=== PATIENT | male | born 1995 | race Two or more races ===

== ENCOUNTER 2025-05-08 06:04 | Day surgery (SDC) | payer MEDICAID, SELFPAY ==
[2025-05-08] VITALS (12 sets, daily range): BP systolic 94–147; BP diastolic 45–94; PULSE 51–81; RESP 15–20; TEMP 36.6–36.9; O2SAT 96–100; BMI 30.9
--- NOTE | 2025-05-08 06:27 | XR_ITS ---
Examination: Knee, left, 3 views Technique: Knee AP, lateral, oblique 3 views Date and time of exam: May 08, 2025, 0632 hours INDICATIONS: Patient fell 2 days ago with injury to the knee, knee pain FINDINGS: Acute patellar fracture, marked separation up to 4 cm of the fracture fragments Femur tibia fibula intact IMPRESSION: Acute mildly fracture of the patella
--- NOTE | 2025-05-08 06:34 | EDNOTE_ITS ---
Lower Extremity Injury RME/HPI General Chief Complaint: Extremity Injury, Lower Stated Complaint: LEFT KNEE PAIN AND NUMBNESS X2 DAYS, PENDING SX Time Seen by Provider: 05/08/25 06:13 Arrival date/time: 05/08/25 06:04 29-year-old male presents to the emergency department since fracturing his left knee on the patient reports pain and swelling to the left knee patient reports he has seen Dr. Pedraza orthopedist 2 to 3 days ago and is awaiting intervention patient reports that he has pain and cannot sleep and asking for pain relief and to see if they can speak with Dr Pedraza Limitations: no limitations Related Data Allergies Allergy/AdvReac Type Severity Reaction Status Date / Time Penicillins Allergy ITCHING Verified 05/08/25 06:07 Review of Systems Review of Systems Systems Reviewed: All systems reviewed, normal except as documented Constitutional Constitutional: Reports system reviewed and no additional complaints, except as documented, Denies fever(s) and Denies headache(s) Eyes Eyes: Reports system reviewed and no additional complaints, except as documented and Denies blurry vision ENT Ears, Nose, Mouth, and Throat: Reports system reviewed and no additional compl aints, except as documented, Denies headache(s), Denies nasal congestion and Denies nasal discharge Cardiovascular Cardiovascular: Reports system reviewed and no additional complaints, except as documented, Denies chest pain and Denies dyspnea Respiratory Respiratory: Reports system reviewed and no additional complaints, except as documented, Denies chest congestion, Denies cough and Denies dyspnea Gastrointestinal Gastrointestinal: Reports system reviewed and no additional complaints, except as documented and Denies abdominal pain Musculoskeletal Musculoskeletal: Reports system reviewed and no additional complaints, except as documented, Reports abnormal gait, Reports arthralgias, Denies deformity, Reports joint swelling, Denies numbness, Reports stiffness and Denies tingling Integumentary/Breasts Skin/Breast: Reports system reviewed and no additional complaints, except as documented and Denies rash Neurologic Neurologic: Reports system reviewed and no additional complaints, except as documented, Reports as per HPI, Reports abnormal gait, Denies headache(s), Denies numbness and Denies tingling Past Medical History Social History SMOKING STATUS: Never smoker ED Exam General Limitations: Present no limitations General appearance: Present alert and in no apparent distress Head Head exam: Present atraumatic Eye Eye exam: Present normal appearance, PERRL and EOMI ENT ENT exam: Present normal exam, normal oropharynx and mucous membranes moist Neck Neck exam: Present normal inspection, full ROM and trachea midline Chest Chest inspection: Present normal inspection and symmetric chest wall rise Respiratory Respiratory exam: Present normal lung sounds bilaterally Cardiovascular Cardiovascular exam: Present regular rate, normal rhythm and normal heart sounds Abdominal Exam Abdominal exam: Present soft and normal bowel sounds Extremities Exam Extremities exam: Present tenderness, normal capillary refill and joint swelling Back Exam Back exam: Present normal inspection and full ROM Neurological Exam Neurological exam: Present alert, oriented X3 and CN II-XII intact Psychiatric Psychiatric exam: Present normal affect and normal mood Skin Skin exam: Present warm, dry, intact and normal color Course Quality Measures none Orders Category Date Time Status SDC [Place in Surgical Day Care] Routine Admission 05/08/25 08:07 Active COVID-19 Screening Questionnaire NOW Care 05/08/25 08:04 Active Decision to Admit X1 Care 05/08/25 08:04 Completed Insert IV NOW Care 05/08/25 07:56 Active NPO NOW Care 05/08/25 07:57 Active Consult to Orthopedic Stat Cons 05/08/25 07:50 Ordered Diet NPO (NOW) Diet 05/08/25 07:57 Active XR knee LT 3V Stat Exams 05/08/25 06:27 Completed CBC [CBC] Stat Lab 05/08/25 08:09 Completed CMP [Comprehensive Metabolic Panel] Stat Lab 05/08/25 08:09 Received HYDROcodone/APAP 10/325 [Tererro 10/325] Med 05/08/25 06:27 Discontinued 1 tab PO X1 ONE Ketorolac Inj [Toradol Inj] Med 05/08/25 06:27 Discontinued 30 mg IM X1 ONE Ondansetron Odt [Zofran Odt] Med 05/08/25 06:27 Discontinued 4 mg PO X1 ONE Vital Signs Vital signs: Vital Signs Temperature 98.4 F 05/08/25 06:15 Pulse Rate 62 05/08/25 06:15 Respiratory Rate 18 05/08/25 06:15 Blood Pressure 126/70 05/08/25 06:15 Pulse Oximetry (%) 97 05/08/25 06:15 Oxygen Delivery Method Room Air 05/08/25 06:15 o2 sat 97% r.a wnl Extremity Injury, Lower MDM Narrative MDM Narrative:: 29-year-old male presents to the emergency department since fracturing his left knee on the patient reports pain and swelling to the left knee patient reports he has seen Dr. Pedraza orthopedist 2 to 3 days ago and is awaiting intervention patient reports that he has pain and cannot sleep and asking for pain relief and to see if they can speak with Dr Pedraza On exam patient well-appearing patient is non-ill or toxic no acute distress Imaging of the left knee obtained Consultation: I spoke with Dr. Pedraza who states he will admit the patient for surgery today At time of admission patient is no distress Patient data External records reviewed:: [facility] previous records Clinical information provided by:: patient Social determinants that could affect healthcare access:: none Patient has the following chronic illnesses:: None How is presenting disease/condition affected by chronic disease/condition?: no chronic disease Evaluation data The following diagnostics were reviewed and interpreted by me:: radiology exam(s) Lab and/or radiology exams considered but not ordered:: Radiology obtained Interpretation Summary: Read by me Medications / Prescriptions Medications or Prescriptions considered but not ordered:: Given Medication administrations:: Medication Administration History Discontinued Medications Hydrocodone Bitart/Acetaminophen (Hydrocodone/Apap 10/325 Tab) 1 tab PO X1 ONE Stop: 05/08/25 06:28 Last Admin: 05/08/25 07:19 Dose: 1 tab Documented By: BERTA Ketorolac Tromethamine (Ketorolac Inj 30 Mg/Ml Vial) 30 mg IM X1 ONE Stop: 05/08/25 06:28 Last Admin: 05/08/25 07:19 Dose: 30 mg Documented By: BERTA Ondansetron HCl (Ondansetron Odt 4 Mg Tabrap) 4 mg PO X1 ONE; Protocol Stop: 05/08/25 06:28 Last Admin: 05/08/25 07:20 Dose: 4 mg Documented By: BERTA Given Consultations Consultation(s) initiated? (list below): Yes Consultation #1 (Physician, Specialty, Details): Dr. Ireland orthopedist Diagnosis Extremity Injury, Lower Differential Diagnosis: acute internal derangement of knee and other (Fracture left knee) Most likely diagnosis given after review of the tests above:: Fracture left knee Admission Indicated Admission indicated?: not indicated Admission Request Was there a request for admission?: No Disposition Plan Disposition Plan: Discharge Discharge Attestation Discharge Attestation: The patient and all family members were given an opportunity to ask questions and understood the discharge instructions. Discharge instructions specifically effects, indications for sooner follow up or return to the emergency department, and the expected course of current diagnosis. Patient condition: Stable Discharge Plan Plan Patient Disposition: Other Care w/in Hosp ([facility]) Discharge Disposition comment: Stable Problem List Clinical Impression: Closed fracture of left patella PA/BUSINESS REPORTING DEVELOPER Supervising Physician PA/BUSINESS REPORTING DEVELOPER Supervising Physician: Dr. Gibbs
[2025-05-08] MEDS: KETOROLAC INJ 30 MG/ML VIAL IM (07:19)
[2025-05-08] MEDS: ONDANSETRON ODT 4 MG TABRAP PO (07:20)
[2025-05-08 08:36] LABS: Basophils # (Auto) 0.1 Thou/mm3 (0.0-0.2); Basophils % (Auto) 1 % (0-2.5); Eosinophils # (Auto) 0.2 Thou/mm3 (0.0-0.5); Eosinophils % (Auto) 3 % (0-10); Hematocrit 43.9 % (41.0-53.0); Hemoglobin 14.3 g/dL (13.5-16.0); Immature Granulocytes Auto 0.02 Thou/mm3 (0.00-0.00); Lymphocytes # (Auto) 2.8 Thou/mm3 (1.0-4.8); Lymphocytes % (Auto) 40 % (10-50); Mean Corpuscular HGB Conc 32.6 g/dl (31.0-37.0); Mean Corpuscular Hemoglobin 27.6 pg (25.0-35.0); Mean Corpuscular Volume 85 fL (80-100); Monocytes # (Auto) 0.7 Thou/mm3 (0.0-0.8); Monocytes % (Auto) 10 % (0-12); Neutrophils # (Auto) 3.2 Thou/mm3 (1.8-7.7); Neutrophils % (Auto) 45 % (37-80); Nucleated Red Blood Cell # 0.00 Thou/mm3 (0.00-0.00); Nucleated Red Blood Cell % 0 /100 WBC (0); Platelet Count 236 Thou/mm3 (140-440); RDW Standard Deviation 38.5 fL (35.1-43.9); Red Blood Count 5.18 Miln/mm3 (4.50-5.90); White Blood Count 7.0 Thou/mm3 (3.8-10.6)
[2025-05-08 08:55] LABS: Alanine Aminotransferase 38 U/L (10-49); Albumin, Serum 4.9 gm/dL (3.5-5.0); Albumin/Globulin Ratio 2.1 (1.2-2.2); Alkaline Phosphatase 102 U/L (46-116); Anion Gap 8 (7-16); Aspartate Amino Transferase 26 U/L (0-34); BUN/Creatinine Ratio 9 Ratio (12-20); Bilirubin,Total 1.3 mg/dL (0.3-1.2); Blood Urea Nitrogen 10 mg/dL (9-23); Calcium 9.9 mg/dL (8.3-10.6); Calcium (Corrected) 9.9 mg/dL (8.5-10.1); Carbon Dioxide 28.6 mMol/L (20.0-31.0); Chloride 107 mMol/L (98-107); Creatinine (Component) 1.1 mg/dL (0.6-1.3); Estimated Creatinine Clearance 98.1 mL/min (>60); Globulin 2.3 gm/dL (2.3-3.5); Glucose 110 mg/dL (74-106); Osmolality,Calculated 286 (275-295); Potassium 4.4 mMol/L (3.4-5.1); Sodium 144 mMol/L (136-145); Total Protein 7.2 gm/dL (5.7-8.2); eGFR > 60 See Note
--- NOTE | 2025-05-08 10:55 | CHAP ---
Patient expressed gratitude for visit and prayer.
--- NOTE | 2025-05-08 13:45 | XR_ITS ---
EXAMINATION: Left knee lateral 4 views Fluoroscopy Date and time: May 08, 2025, 1525 hours INDICATIONS: Acute fractures patella postop reduction fixation today. TECHNIQUE AND FINDINGS: Operative reduction internal fixation patellar fracture with anatomic alignment Orthopedic hardware satisfactory position Fluoroscopy 1 minute 28 seconds radiation dose 2.162 mGy 4 spot fluoroscopic knee films IMPRESSION: Operative reduction internal fixation patellar fracture with anatomic alignment
--- NOTE | 2025-05-08 15:42 | ESOP_ITS ---
Date of Procedure 05/08/25 Pre Op Diagnosis Displaced fracture left patella Post Op Diagnosis Same Procedure ORIF of the left patella with Synthes Seive plate and screws Findings Patient sustained fracture of the left patella. The patella was completely displaced. There is a lot of scar tissue present. Retinaculum was also disrupted. Procedure Description Patient was given general endotracheal anesthesia. Once satisfactory anesthesia was achieved a tourniquet was placed on left upper thigh. Following that the part was thoroughly prepped and draped. After using Esmarch the tourniquet pressure was raised to 350 mmHg. Intravenous antibiotics was given at the time of anesthesia Skin incision made from the tibial tuberosity extending proximally up to 4 inches proximal to the patella. The skin in the subcu tissue was raised as a flap. Following that the was patellar soft tissue was reflected. Fracture fragment was exposed. The clotted blood and soft tissue invaginated between the fracture fragment was removed. Wound was irrigated with antibiotic solution every 4 to 5 minutes Following that with a pointed reduction clamp the fracture was reduced and checked under C-arm. The joint surface was very much maintained. Following that Munira plate was placed over the frontal aspect of the patella. The sizing was done. Following that 2 cortical screws were placed proximally and 2 distally. Before doing that 2 K wires was passed from the proximal fracture fragment to the distal fracture fragment to hold it together. The excess limb of the patellar plate was removed with the cutter. Following that 3 interlocking screws were placed proximally and 3 distally. Position repeatedly checked under C-arm and found to be good Following that the soft tissue was repaired with 2-0 Vicryl. Retinaculum was also repaired with 2-0 Vicryl. The subcu tissue was closed with 2-0 Vicryl. The skin was closed with jessica The wound was cleaned with hydrogen peroxide solution. Sterile dressing was applied and tourniquet pressure was released Knee immobilizer was applied as well. Patient tolerated procedure well. Estimated blood loss about 20 mL. Anesthesia GETA and other Pathology / specimen None Estimated Blood Loss 20 Surgeon Alli Pedraza MD Surgical Staff Operation Date: 05/08/25 13:45 Case Staff MANAGER WIRELESS: Braxton Lucas RNeating disorder psychologist: Esther Khan RN First Assistant: Kareem Fink
--- NOTE | 2025-05-08 15:49 | XR_ITS ---
EXAMINATION: Left knee 2 views TECHNIQUE: 1. AP lateral left knee 2 views Date and time: May 08, 2025, 1623 hours INDICATIONS: Patellar fracture, status post operative reduction internal fixation patellar fracture today. FINDINGS: Operative reduction internal fixation patellar fracture. Anatomic alignment. Orthopedic hardware in satisfactory position. IMPRESSION: Operative reduction internal fixation patellar fracture with satisfactory alignment
--- NOTE | 2025-05-08 15:51 | SUR.PHASEI ---
4239 Patient arrived to recovery resting comfortably in [facility], LMA removed on upon, drowsy and able to follow verbal commands, on oxygen 4L via nasal cannula, breathing unlabored, vital signs stable, denies pain, dressing intact to left lower extremity; jessica, adaptic soaked in betadine, fluffs, abd, bias roll, silk tape, knee immoblizer, no bleeding noted, denies pain, report received from Vazquez TORIBIO and Khang AGSTON
[2025-05-08] MEDS: fentaNYL CIT INJ 50 mCg/ML AMP 2ML IVP (16:18)
[2025-05-08] MEDS: ACETAMINOPHEN IVPB 1,000 MG/100 ML VIAL 250 MG IV (16:21)
--- NOTE | 2025-05-08 16:25 | ESHP_ITS ---
RE: JACKELYN CODY : 1995 DATE OF ADMISSION: 05/08/2025 The patient came to my office on 05/07/2025 for detailed preop history and physical examination. HISTORY OF PRESENT COMPLAINT: As per patient he slipped and landed on his left knee on 04/24/2025. Subsequent to that he was unable to put weight on it. The patient went to emergency room and x-ray was obtained. It revealed complete displaced fracture of the left patella. The patient was given a knee immobilizer and crutches and was referred to me. PAST MEDICAL HISTORY: No history of diabetes mellitus, high blood pressure, asthma, seizure, chest pain, myocardial infarction, bleeding disorder. PAST SURGICAL HISTORY: Nil known. DRUG HISTORY: The patient is on pain medication. ALLERGIES: ALLERGIC TO PENICILLIN. FAMILY HISTORY AND SOCIAL HISTORY: The patient denies smoking but admits social drinking. PHYSICAL EXAMINATION: GENERAL: Normal built person. Pulse 64 per minute, blood pressure is 120/72. NECK: Soft, supple, no mass felt, trachea is centrally placed. CARDIOVASCULAR SYSTEM: First and second heart sound normal. No murmur heard. RESPIRATORY SYSTEM: Bilateral vesicular breath sounds. Chest clear. ABDOMEN: Soft, scaphoid. Bowel sounds present. No mass felt. LEFT KNEE: Reveals significant swelling. There is ecchymosis and bruise. There was a definite gap between the upper part of the fracture patella and distal part. The patient was unable to extend or flex the knee due to pain. DIAGNOSTIC DATA: X-ray confirms significantly displaced fracture of the left patella. ASSESSMENT AND PLAN: The patient was advised surgical fixation. Explained that it could be fixed either with a plate or a K-wire or sometimes only with the screws. Detailed discussion took place. Risks with anesthesia was explained and that includes but not limited to reaction to anesthetic agents, cardiac arrest, and rarely it might be fatal. Risks with operation includes infection and if that happens patient may need further surgical procedure. Other risks include delayed healing, wound dehiscence, etc. Sometimes there is a possibility of displacement of the fracture fragment and breaking of the implant. No guarantee is given regarding outcome. Because of the fracture there is a possibility that the patient may develop early arthritic changes. Accordingly surgery is booked for 05/08/2025. DT: 15:49:29 TT: 16:24:00 Ref: [id number] - TID: [id number]
--- NOTE | 2025-05-08 16:27 | SUR.PHASEI ---
1627 XRAY complete per MD order
--- NOTE | 2025-05-08 16:30 | SUR.PHASEI ---
1630 Telephone order read-back received from Casey Shukla CRNA oral tab x1 for pain, will place order in EMR and administer per anesthesia order
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
[2025-05-08] MEDS: HYDROcodone/APAP 5/325 TABLET 1 TAB PO (16:43)
--- NOTE | 2025-05-08 17:37 | SUR.PHASEII ---
1737 Patient meets discharge criteria from recovery, awake and alert, breathing unlabored, vital signs stable, dressing intact with knee immoblizer, no bleeding noted, per patient his pain is tolerable- pain pill given prior to discharge, ate two jello and drinking water; denies nausea, patient assisted with dressing into his clothing by his , discharge instructions given to patient and patients , signed discharge instructions. Patient given all his belongings prior to discharge, transported via wheelchair and left in a private vehicle.
== END 2025-05-08 16:27 | disposition home or self-care (01) ==
LOC: SERX 08:32 → S2EX 08:37
PROVIDERS: Nurse Practitioner Primary Care; Emergency Provider Emergency Medicine; Referring Provider Orthopaedic Surgery; Visit Provider Orthopaedic Surgery
PROC: (CPT 27524; principal; 2025-05-08 13:30)
DX: S82.002A Unspecified fracture of left patella, initial encounter for closed fracture (principal); L90.5 Scar conditions and fibrosis of skin; W01.0XXA Fall on same level from slipping, tripping and stumbling without subsequent striking against object, initial encounter
CPT/HCPCS: 27524; 36415; 73560; 73562; 76000; 80053; 85025; 96372; 99282; A4649; C1713; J0131; J0690; J1580; J1885; J2250; J2704; J2795; J3010; Q0162; A9270